=== PATIENT | female | born 1950 | race African-American/Black ===

== ENCOUNTER → 2017-01-14 | Outpatient (CLI) | payer OTHER ==
--- NOTE | 2017-01-15 14:27 | EKG ---
Date Performed: 01/14/2017 Time Performed: 13:52:51 PTAGE: 66 years EKG: Sinus rhythm WITH SINUS ARRHYTHMIA POSSIBLE LEFT ATRIAL ENLARGEMENT NONSPECIFIC T-WAVE ABNORMALITY BORDERLINE ECG PREVIOUS TRACING : 01/19/2004 07.41 DOCTOR: Joe Mathis Interpretating Date/Time 01/15/2017 14:26:17
== END ==
LOC: HCAV 13:36
DX: I49.9 Cardiac arrhythmia, unspecified (principal)
CPT/HCPCS: 93005